=== PATIENT | male | born 1990 | race Caucasian/White ===

== ENCOUNTER 2022-07-26 23:37 | Emergency (ER) | payer MEDICAID ==
[~2022-07-26] VITALS: Ht 167.6 cm; Wt 68.0 kg
[2022-07-26 23:49] VITALS: BP 125/83
[2022-07-27] MEDS ORDERED: IBUPROFEN 600MG TABLET PO STA (00:33)
[2022-07-27] MEDS ORDERED: IBUP-2029 MT (02:06)
== END 2022-07-27 02:47 | disposition home or self-care (01) ==
LOC: ER 23:37
DX: S00.81XA Abrasion of other part of head, initial encounter (principal); S00.83XA Contusion of other part of head, initial encounter; Y04.0XXA Assault by unarmed brawl or fight, initial encounter; Y93.89 Activity, other specified; Y92.831 Amusement park as the place of occurrence of the external cause; Y99.8 Other external cause status
CPT/HCPCS: 70486; 99284